=== PATIENT | male | born 1985 | race Caucasian/White ===

== ENCOUNTER 2016-11-29 21:03 | Inpatient (IN) | payer BC ==
[~2016-11-29] VITALS: Ht 175.3 cm; Wt 90.7 kg
--- NOTE | 2016-11-29 21:20 | NUR ---
REC'D PT BIBA, PER MEDIC: C/O SHARP ABD PAIN RADIATING TO [facility] 9/10 1 HOUR POST EATING AT HOME AND HAVING "4 CUPS OF VODKA", ALSO C/O SOB, WAS FOUND PALE, COOLY AND CLAMMY WITH A BS OF 95, VSS, GCS 15, NOW STAING PAIN IS 4/10 IN LUQ AND MORE TENDER TO TOUCH. PT NOW RESTING IN BED, NO ACUTE DISTRESS NOTED. BREATHING E/U, NO SOB NOTED. ON RA. WILL CONTINUE TO MONITOR.
--- NOTE | 2016-11-29 21:35 | NUR ---
DR. FERNANDO IN TO SEE PT FOR MSE
[2016-11-29 21:57] LABS: BASOPHIL % 0.8 % (0-2); PLATELET COUNT 301 x10^3mcL (130-400); RED CELL DISTRIBUTION WIDTH 13.7 % (11.5-14.5)
[2016-11-29 22:09] LABS: CALCIUM 8.4 mg/dL (8.5-10.1); CARBON DIOXIDE 26.9 mmol/L (21-32); CHLORIDE SERUM 107 mmol/L (98-107); CREATININE SERUM 1.4 mg/dL (0.7-1.3); GFR1 > 60 mL/min; GLUCOSE SERUM 91 mg/dL (74-106); POTASSIUM SERUM 3.5 mmol/L (3.5-5.1); SODIUM SERUM 144 mmol/L (136-145)
[2016-11-29 22:13] LABS: ALBUMIN 3.6 g/dL (3.4-5.0); ALKALINE PHOSPHATASE 62 U/L (46-116); ALT/SGPT 104 U/L (16-63); AMYLASE 58 U/L (25-115); AST/SGOT 237 U/L (15-37); BILIRUBIN TOTAL 0.78 mg/dL (0.20-1.00); LIPASE 190 IU/L (73-393); TOTAL PROTEIN, SERUM 7.2 g/dL (6.4-8.2)
--- NOTE | 2016-11-29 22:22 | NUR ---
PT AMBULATED TO RESTROOM WITH STEADY GAIT TO PROVIDE URINE SAMPLE
[2016-11-29 22:51] LABS: microscopic required? NO
[2016-11-29 23:14] LABS: UA SPECIFIC GRAVITY 1.015 (1.005-1.035); urine erythrocyte NEGATIVE (NEGATIVE)
--- NOTE | 2016-11-30 02:22 | NUR ---
REPORT GIVEN TO BRIANNA CASTRO FOR CONTINUITY OF CARE IN [facility]
[2016-11-30 02:40] LABS: MAGNESIUM 2.1 mg/dL (1.8-2.4); PHOSPHOROUS 3.5 mg/dL (2.5-4.9)
[2016-11-30 02:44] LABS: CHOLESTEROL/HDL RATIO 2.4
[2016-11-30 02:56] LABS: FREE T4 1.23 ng/dL (0.76-1.46); FREE THYROXINE INDEX 3.2 ug/dL (1.4-4.5); T4(THYROXINE) 8.3 ug/dL (4.7-13.3)
[2016-11-30 03:03] VITALS: BP 152/98
--- NOTE | 2016-11-30 03:20 | NUR ---
RECEIVED PT FROM ED. PT A/OX4. DENIES PAIN. DENIES SOB ON RA. IV PATENT. NO ACUTE DISTRESS. RR EVEN AND UNLABORED. ORIENTED TO ROOM AND SURROUNDINGS. CALL LIGHT WITHIN REACH, BED IN LOW POSITION. WILL CONTINUE TO MONITOR.
[2016-11-30 04:15] LABS: T3 TOTAL 1.04 ng/mL
[2016-11-30 05:51] VITALS: BP 145/98
[2016-11-30 06:35] LABS: BASOPHIL % 0.5 % (0-2); PLATELET COUNT 313 x10^3mcL (130-400); RED CELL DISTRIBUTION WIDTH 13.8 % (11.5-14.5)
[2016-11-30 06:41] LABS: CALCIUM 8.2 mg/dL (8.5-10.1); CARBON DIOXIDE 28.6 mmol/L (21-32); CHLORIDE SERUM 107 mmol/L (98-107); CREATININE SERUM 1.1 mg/dL (0.7-1.3); GFR1 > 60 mL/min; GLUCOSE SERUM 92 mg/dL (74-106); POTASSIUM SERUM 3.9 mmol/L (3.5-5.1); SODIUM SERUM 141 mmol/L (136-145)
--- NOTE | 2016-11-30 07:25 | NUR ---
AAO X4.DENIES ANY PAIN/DISCOMFORT AT THE MOMENT.LUNGS CLEAR.ON SR ON THE MONITOR.IVF NS GOING AT 100 ML/HR INFUSING WELL.ON NPO STATUS FOR POSSIBLE SURGERY TODAY.CALL LIGHT WITHIN REACH.INSTRUCTED TO CALL FOR ANY PAIN/DISCOMFORT.PT VERBALIZES UNDERSTANDING.WILL CONTINUE TO MONITOR.
[2016-11-30 08:42] VITALS: BP 146/102
--- NOTE | 2016-11-30 08:50 | NUR ---
AND MEDICINE TEAM AT BEDSIDE.INFORMED PT ABOUT THE PLAN OF CARE.WILL CONSULT SURGEON FOR POSSIBLE SURGERY TODAY.PT COOPERATIVE WITH THE PLAN OF CARE.
--- NOTE | 2016-11-30 12:49 | NUR ---
NUC MED AT BEDSIDE TO DO HIDA SCAN.
[2016-11-30 13:45] VITALS: BP 138/91
--- NOTE | 2016-11-30 14:07 | NUR ---
CONSENT SIGNED FOR EMILY MESSI.PRE-OP CHECKLIST DONE.VINNIE BATH DONE.
--- NOTE | 2016-11-30 15:17 | NUR ---
SURGERY RESCHEDULED FOR TOMORROW. INFORMED PT.
--- NOTE | 2016-12-01 01:56 | NUR ---
PT RESTING WITH EYES CLOSED. NO DISTRESS AND DISCOMFORT NOTED. WILL CONTINUE TO MONITOR.
[2016-12-01 04:19] VITALS: Ht 175.3 cm; Wt 90.7 kg
[2016-12-01 06:30] LABS: CALCIUM 8.5 mg/dL (8.5-10.1); CARBON DIOXIDE 30.3 mmol/L (21-32); CHLORIDE SERUM 107 mmol/L (98-107); CREATININE SERUM 0.9 mg/dL (0.7-1.3); GFR1 > 60 mL/min; GLUCOSE SERUM 90 mg/dL (74-106); POTASSIUM SERUM 3.5 mmol/L (3.5-5.1); SODIUM SERUM 142 mmol/L (136-145)
--- NOTE | 2016-12-01 06:45 | NUR ---
PT QUIET AND RESTING. GAVE PT CHORHEXIDINE WIPES TO PREP FOR POSSIBLE PROCEDURE. NO C/O ABD PAIN THUS FAR. IV INTACT AND INFUSING ORDERED. WILL ENDORSE TO THE AM NURSE ACCORDINGLY.
[2016-12-01 06:48] LABS: BASOPHIL % 0.8 % (0-2); PLATELET COUNT 329 x10^3mcL (130-400); RED CELL DISTRIBUTION WIDTH 13.9 % (11.5-14.5)
[2016-12-01 06:50] VITALS: BP 139/90
== END 2016-12-01 08:07 | disposition left against medical advice (07) | DRG 444 ==
LOC: ED 21:03 → DU 11-30 01:05
PROVIDERS: Emergency Medicine; ADMIT Family Medicine
DX: K80.00 Calculus of gallbladder with acute cholecystitis without obstruction (principal); N17.0 Acute kidney failure with tubular necrosis; B16.9 Acute hepatitis B without delta-agent and without hepatic coma; F12.10 Cannabis abuse, uncomplicated; E66.3 Overweight; Z68.29 Body mass index [BMI] 29.0-29.9, adult; E83.51 Hypocalcemia
CPT/HCPCS: 78226; 83880; 84439; A9537; J0295; J3490; J7030; Q0092

== ENCOUNTER 2018-03-25 19:16 | Emergency (ER) | payer SELFPAY ==
[~2018-03-25] VITALS: Ht 175.3 cm; Wt 93.0 kg
[2018-03-25 19:22] VITALS: Ht 175.3 cm; Wt 93.0 kg
[2018-03-25 20:32] LABS: BASOPHIL % 0.6 % (0-2); PLATELET COUNT 358 x10^3mcL (130-400); RED CELL DISTRIBUTION WIDTH 14.1 % (11.5-14.5)
[2018-03-25 21:16] LABS: CALCIUM 8.7 mg/dL (8.5-10.1); CARBON DIOXIDE 30.1 mmol/L (21-32); CHLORIDE SERUM 103 mmol/L (98-107); CREATININE SERUM 1.1 mg/dL (0.7-1.3); GFR1 > 60 mL/min; GLUCOSE SERUM 100 mg/dL (74-106); POTASSIUM SERUM 3.9 mmol/L (3.5-5.1); SODIUM SERUM 139 mmol/L (136-145)
[2018-03-25 21:22] LABS: ALBUMIN 3.9 g/dL (3.4-5.0); ALKALINE PHOSPHATASE 65 U/L (46-116); ALT/SGPT 99 U/L (16-63); AST/SGOT 49 U/L (15-37); BILIRUBIN TOTAL 0.42 mg/dL (0.20-1.00); CHOLESTEROL 188 mg/dL (<200); MAGNESIUM 2.1 mg/dL (1.8-2.4)
[2018-03-25 21:25] LABS: HDL CHOLESTEROL 68 mg/dL (40-60)
[2018-03-25 23:58] LABS: AMPHETAMINE QUAL UR POSITIVE (See below)
[2018-03-26 00:29] VITALS: BP 151/99
== END 2018-03-26 00:29 | disposition home or self-care (01) ==
LOC: ED 19:16
PROVIDERS: Emergency Medicine
DX: G44.209 Tension-type headache, unspecified, not intractable (principal); I10 Essential (primary) hypertension; Z98.890 Other specified postprocedural states
CPT/HCPCS: J1885; J2405; J3010; Q0092